=== PATIENT | female | born 1950 | race Caucasian/White ===

== ENCOUNTER 2017-07-30 11:00 | Observation (INO) | payer MEDICARE, MEDICAID ==
[~2017-07-30] VITALS: Ht 157.5 cm; Wt 52.2 kg
[~2017-07-30 11:00] MED LIST: DIAZ-104
[2017-07-30 13:05] VITALS: BP 124/77
== END 2017-07-30 13:18 | disposition home or self-care (01) | DRG 690 ==
LOC: ER 11:00 → OVERFLOW 11:35 → ER 13:18
PROVIDERS: ADMIT Family Medicine; ATTEND Family Medicine
DX: N39.0 Urinary tract infection, site not specified (principal); G35 Multiple sclerosis; T83.021A Displacement of indwelling urethral catheter, initial encounter; Y84.6 Urinary catheterization as the cause of abnormal reaction of the patient, or of later complication, without mention of misadventure at the time of the procedure; Y92.89 Other specified places as the place of occurrence of the external cause; Z74.01 Bed confinement status; Z99.3 Dependence on wheelchair
CPT/HCPCS: 99285; G0378

== ENCOUNTER 2018-01-07 06:18 | Inpatient (IN) | payer MEDICARE, MEDICAID ==
[~2018-01-07] VITALS: Ht 165.1 cm; Wt 62.1 kg
[2018-01-07] MEDS ORDERED: ONDANSETRON HCL 4 MG/2 ML VIAL IV ONE (06:30)
[2018-01-07] MEDS ORDERED: MORPHINE SULFATE 4 MG/ML SYR/VIAL IV ONE (06:30)
[2018-01-07] MEDS ORDERED: SODIUM CHLORIDE 0.9% 1,000 ML IV ONE (07:35)
[2018-01-07] MEDS ORDERED: LEVOFLOXACIN 500MG 100 ML IV ONE (07:45)
[2018-01-07 08:33] LABS: Basophils # (auto) 0.1 uL; Basophils % (auto) 1.3 % (0.0-2.0); Eosinophils # (auto) 0.1 uL; Eosinophils % (auto) 0.6 % (0.0-7.0); Hematocrit 39.8 % (36.0-46.0); Hemoglobin 13.3 g/dL (12.2-16.2); Lymphocytes # (auto) 2.3 uL; Lymphocytes % (auto) 21.4 % (10.0-50.0); Mean Corpuscular Hgb Conc. 33.4 g/dL (32.0-36.0); Monocytes # (auto) 0.9 uL; Monocytes % (auto) 8.1 % (0.0-12.0); Neutrophils # (auto) 7.5 uL; Neutrophils % (auto) 68.6 % (37.0-80.0); Nucleated Red Blood Cells % 0.1 %; Platelet Count (auto) 414 10^3/uL (140-450); Red Blood Cells 4.15 10^6/uL (4.0-5.20); White Blood Cell 10.9 10^3/uL (4.4-10.8)
[2018-01-07 08:50] LABS: Urine Bacteria NONE SEEN /hpf (None Seen); Urine Blood 1+ /uL (Negative); Urine Mucus FEW (None Seen); Urine Specific Gravity 1.016 (1.001-1.035); Urine WBC 1297 /hpf (0 - 5); Urine WBC Clumps PRESENT /hpf (None Seen)
[2018-01-07] MEDS ORDERED: SODIUM CHLORIDE 0.9% 1,000 ML IV SCH (08:53)
[2018-01-07 08:55] LABS: INR 0.99 (0.9-1.15); Prothrombin Time 10.8 sec (9.37-12.3)
[2018-01-07 08:57] LABS: Albumin 2.9 g/dL (3.4-5.0); BUN/Creatinine Ratio 8.9; Bilirubin, Total 0.3 mg/dL (0.2-1.0); Calcium 8.5 mg/dL (8.5-10.1); Potassium 3.6 mmol/L (3.5-5.1); Total Protein 8.2 g/dL (6.4-8.2)
[2018-01-07] MEDS ORDERED: PROMETHAZINE HCL 25 MG/ML 1ML IV PRN (09:00)
[2018-01-07] MEDS ORDERED: ACETAMINOPHEN 500 MG TAB PO PRN (09:00)
[2018-01-07] MEDS ORDERED: FAMOTIDINE (10MG/ML) 2ML VL IV SCH (09:00)
[2018-01-07] MEDS ORDERED: NITROGLYCERIN 0.4 MG SL TAB SL PRN (09:00)
[2018-01-07] MEDS ORDERED: LORazepam 0.5 MG TAB PO PRN (09:00)
[2018-01-07] MEDS ORDERED: MORPHINE SULFATE 4 MG/ML SYR/VIAL IV PRN (09:00)
[2018-01-07] MEDS: ENOXAPARIN SOD 30 MG/0.3 ML SYRINGE SC SCH (09:52)
[2018-01-07] MEDS: FAMOTIDINE (10MG/ML) 2ML VL IV SCH (09:52)
[2018-01-07] MEDS: cefTRIAXone 1GM/10ml IVPUSH 10 ML IV SCH (09:52)
[2018-01-07] MEDS ORDERED: HYDR-4683 PO (11:22)
[2018-01-07 11:24] VITALS: BP 111/67
[2018-01-07 12:00] VITALS: BP 111/67
[2018-01-07] MEDS: DIAZEPAM 5 MG TAB PO SCH ×2 (14:21→22:03)
[2018-01-07] MEDS: HYDROcodone-ACET 5/325MG TAB PO PRN ×2 (14:22→22:03)
[2018-01-07] MEDS: SODIUM CHLORIDE 0.9% 1,000 ML IV SCH (14:23)
[2018-01-07 15:00] VITALS: BP 109/57
[2018-01-07 20:00] VITALS: BP 101/61
[2018-01-07 22:00] VITALS: BP 101/61
[2018-01-08] MEDS: SODIUM CHLORIDE 0.9% 1,000 ML IV SCH ×3 (00:30→22:02)
[2018-01-08 05:52] VITALS: BP 105/66
[2018-01-08] MEDS: HYDROcodone-ACET 5/325MG TAB PO PRN ×2 (06:37→14:33)
[2018-01-08] MEDS: DIAZEPAM 5 MG TAB PO SCH ×3 (06:37→22:03)
[2018-01-08 07:51] LABS: Albumin 1.3 g/dL (3.4-5.0); BUN/Creatinine Ratio 12.5; Potassium 3.3 mmol/L (3.5-5.1)
[2018-01-08 07:52] VITALS: BP 113/58
[2018-01-08 07:58] LABS: Bilirubin, Total 0.2 mg/dL (0.2-1.0)
[2018-01-08 08:08] LABS: Calcium 5.8 mg/dL (8.5-10.1)
[2018-01-08 08:43] LABS: Basophils # (auto) 0.1 uL; Basophils % (auto) 0.8 % (0.0-2.0); Eosinophils # (auto) 0.1 uL; Eosinophils % (auto) 1.4 % (0.0-7.0); Hematocrit 35.9 % (36.0-46.0); Hemoglobin 11.8 g/dL (12.2-16.2); Lymphocytes # (auto) 2.3 uL; Lymphocytes % (auto) 28.8 % (10.0-50.0); Mean Corpuscular Hgb Conc. 32.7 g/dL (32.0-36.0); Mean Corpuscular Volume 97.8 fL (80.0-100.0); Monocytes # (auto) 0.6 uL; Monocytes % (auto) 7.6 % (0.0-12.0); Neutrophils # (auto) 4.8 uL; Neutrophils % (auto) 61.4 % (37.0-80.0); Platelet Count (auto) 320 10^3/uL (140-450); Red Blood Cells 3.67 10^6/uL (4.0-5.20); Red Cell Distribution Width 15.1 % (11.8-14.3); White Blood Cell 7.9 10^3/uL (4.4-10.8)
[2018-01-08] MEDS: cefTRIAXone 1GM/10ml IVPUSH 10 ML IV SCH (09:54)
[2018-01-08] MEDS: FAMOTIDINE (10MG/ML) 2ML VL IV SCH (10:04)
[2018-01-08] MEDS: ENOXAPARIN SOD 30 MG/0.3 ML SYRINGE SC SCH (10:04)
[2018-01-08 11:23] VITALS: BP 105/74
[2018-01-08] MEDS ORDERED: POTASSIUM CHL 10% (20 MEQ/15ML) 15ml ORAL SOLN PO ONE (15:30)
[2018-01-08] MEDS ORDERED: CALCIUM GLUC 4.65meq/50ml D5AE 50 ML IV ONE (15:30)
[2018-01-08 17:10] VITALS: BP 133/65
[2018-01-08] MEDS: ASCORBIC ACID 500 MG TAB PO SCH (17:58)
[2018-01-08] MEDS: MULTIPLE VITAMINS W/ MINERALS TAB PO SCH (18:00)
[2018-01-08 20:00] VITALS: BP 103/53
[2018-01-08 22:00] VITALS: BP 103/53
[2018-01-08] MEDS: PRO-STAT 64 30ML PO SCH (22:03)
[2018-01-09 05:32] VITALS: BP 109/54
[2018-01-09] MEDS: DIAZEPAM 5 MG TAB PO SCH ×3 (05:44→21:44)
[2018-01-09] MEDS: SODIUM CHLORIDE 0.9% 1,000 ML IV SCH ×2 (05:45→16:04)
[2018-01-09] MEDS: HYDROcodone-ACET 5/325MG TAB PO PRN ×2 (06:01→13:52)
[2018-01-09 09:00] VITALS: BP 128/65
[2018-01-09] MEDS: FAMOTIDINE (10MG/ML) 2ML VL IV SCH (09:58)
[2018-01-09] MEDS: MULTIPLE VITAMINS W/ MINERALS TAB PO SCH (09:58)
[2018-01-09] MEDS: ENOXAPARIN SOD 30 MG/0.3 ML SYRINGE SC SCH (09:58)
[2018-01-09] MEDS: ASCORBIC ACID 500 MG TAB PO SCH (09:58)
[2018-01-09] MEDS: PRO-STAT 64 30ML PO SCH ×2 (09:59→21:44)
[2018-01-09] MEDS: cefTRIAXone 1GM/10ml IVPUSH 10 ML IV SCH (09:59)
[2018-01-09 11:54] LABS: Albumin 2.1 g/dL (3.4-5.0); BUN/Creatinine Ratio 9.7; Bilirubin, Total 0.1 mg/dL (0.2-1.0); Calcium 7.7 mg/dL (8.5-10.1)
[2018-01-09 13:00] VITALS: BP 122/85
[2018-01-09 16:00] VITALS: BP 111/53
[2018-01-09] MEDS: TEMAZEPAM 15 MG CAP PO PRN (21:43)
[2018-01-09 22:00] VITALS: BP 113/69
[2018-01-10 05:00] VITALS: BP 108/61
[2018-01-10] MEDS: DIAZEPAM 5 MG TAB PO SCH ×3 (06:20→21:37)
[2018-01-10] MEDS: SODIUM CHLORIDE 0.9% 1,000 ML IV SCH ×2 (06:21→12:00)
[2018-01-10 08:24] VITALS: BP 106/66
[2018-01-10] MEDS: cefTRIAXone 1GM/10ml IVPUSH 10 ML IV SCH (11:27)
[2018-01-10] MEDS: ENOXAPARIN SOD 30 MG/0.3 ML SYRINGE SC SCH (11:27)
[2018-01-10] MEDS: ASCORBIC ACID 500 MG TAB PO SCH (11:28)
[2018-01-10] MEDS: MULTIPLE VITAMINS W/ MINERALS TAB PO SCH (11:28)
[2018-01-10] MEDS: FAMOTIDINE (10MG/ML) 2ML VL IV SCH (11:28)
[2018-01-10] MEDS: PRO-STAT 64 30ML PO SCH ×2 (11:29→21:38)
[2018-01-10 13:30] VITALS: BP 110/76
[2018-01-10 17:31] VITALS: BP 110/60
[2018-01-10 22:00] VITALS: BP 134/73
[2018-01-11] MEDS: SODIUM CHLORIDE 0.9% 1,000 ML IV SCH ×3 (02:41→18:00)
[2018-01-11 05:00] VITALS: BP 111/62
[2018-01-11] MEDS: DIAZEPAM 5 MG TAB PO SCH ×3 (06:46→22:37)
[2018-01-11 09:00] VITALS: BP 124/62
[2018-01-11] MEDS ORDERED: FUROSEMIDE 40 MG/4 ML VIAL ONE (09:14)
[2018-01-11] MEDS: MORPHINE SULFATE 4 MG/ML SYR/VIAL IV PRN ×3 (10:22→21:13)
[2018-01-11] MEDS: FAMOTIDINE (10MG/ML) 2ML VL IV SCH (10:24)
[2018-01-11] MEDS: cefTRIAXone 1GM/10ml IVPUSH 10 ML IV SCH (10:24)
[2018-01-11] MEDS: MULTIPLE VITAMINS W/ MINERALS TAB PO SCH (10:26)
[2018-01-11] MEDS: ASCORBIC ACID 500 MG TAB PO SCH (10:26)
[2018-01-11] MEDS: PRO-STAT 64 30ML PO SCH ×2 (10:27→22:00)
[2018-01-11] MEDS: ENOXAPARIN SOD 30 MG/0.3 ML SYRINGE SC SCH (10:27)
[2018-01-11 12:49] LABS: Basophils # (auto) 0.1 uL; Basophils % (auto) 0.9 % (0.0-2.0); Eosinophils # (auto) 0.1 uL; Hematocrit 34.6 % (36.0-46.0); Hemoglobin 11.5 g/dL (12.2-16.2); Lymphocytes # (auto) 1.6 uL; Lymphocytes % (auto) 25.7 % (10.0-50.0); Mean Corpuscular Hemoglobin 31.8 pg (28.0-32.0); Mean Corpuscular Hgb Conc. 33.1 g/dL (32.0-36.0); Monocytes # (auto) 0.5 uL; Monocytes % (auto) 7.8 % (0.0-12.0); Neutrophils % (auto) 63.6 % (37.0-80.0); Nucleated Red Blood Cells % 0.3 %; Platelet Count (auto) 330 10^3/uL (140-450); Red Blood Cells 3.61 10^6/uL (4.0-5.20); Red Cell Distribution Width 14.4 % (11.8-14.3); White Blood Cell 6.2 10^3/uL (4.4-10.8)
[2018-01-11 13:00] VITALS: BP 141/74
[2018-01-11 13:19] LABS: BUN/Creatinine Ratio 13.5; Calcium 8.1 mg/dL (8.5-10.1)
[2018-01-11 13:25] LABS: Potassium 4.3 mmol/L (3.5-5.1)
[2018-01-11 16:37] VITALS: BP 121/70
[2018-01-11 22:00] VITALS: BP 114/70
[2018-01-12 05:00] VITALS: BP 100/61
[2018-01-12] MEDS: DIAZEPAM 5 MG TAB PO SCH ×3 (06:10→22:00)
[2018-01-12] MEDS: SODIUM CHLORIDE 0.9% 1,000 ML IV SCH ×2 (08:39→15:00)
[2018-01-12] MEDS: cefTRIAXone 1GM/10ml IVPUSH 10 ML IV SCH (08:39)
[2018-01-12] MEDS: FAMOTIDINE (10MG/ML) 2ML VL IV SCH (09:27)
[2018-01-12] MEDS: PRO-STAT 64 30ML PO SCH ×2 (09:28→22:00)
[2018-01-12] MEDS: MULTIPLE VITAMINS W/ MINERALS TAB PO SCH (09:28)
[2018-01-12] MEDS: ASCORBIC ACID 500 MG TAB PO SCH (09:28)
[2018-01-12] MEDS: MORPHINE SULFATE 4 MG/ML SYR/VIAL IV PRN (09:29)
[2018-01-12] MEDS: ENOXAPARIN SOD 30 MG/0.3 ML SYRINGE SC SCH (09:29)
[2018-01-12 11:51] VITALS: BP 92/54
[2018-01-12] MEDS: HYDROcodone-ACET 5/325MG TAB PO PRN (16:24)
[2018-01-12 17:04] VITALS: BP 123/66
[2018-01-12 22:08] VITALS: BP 94/51
[2018-01-13] MEDS: HYDROcodone-ACET 5/325MG TAB PO PRN ×4 (03:01→22:55)
[2018-01-13 05:13] VITALS: BP 108/58
[2018-01-13] MEDS: DIAZEPAM 5 MG TAB PO SCH ×3 (06:25→21:31)
[2018-01-13 08:39] VITALS: BP 111/70
[2018-01-13] MEDS: FAMOTIDINE (10MG/ML) 2ML VL IV SCH (09:43)
[2018-01-13] MEDS: cefTRIAXone 1GM/10ml IVPUSH 10 ML IV SCH (09:43)
[2018-01-13] MEDS: ASCORBIC ACID 500 MG TAB PO SCH (09:43)
[2018-01-13] MEDS: ENOXAPARIN SOD 30 MG/0.3 ML SYRINGE SC SCH (09:43)
[2018-01-13] MEDS: MULTIPLE VITAMINS W/ MINERALS TAB PO SCH (09:43)
[2018-01-13] MEDS: SODIUM CHLORIDE 0.9% 1,000 ML IV SCH ×3 (09:51→20:00)
[2018-01-13] MEDS: PRO-STAT 64 30ML PO SCH ×2 (09:51→21:31)
[2018-01-13 12:00] VITALS: BP 130/77
[2018-01-13 15:00] VITALS: BP 131/82
[2018-01-13] MEDS: TEMAZEPAM 15 MG CAP PO PRN (22:50)
[2018-01-14 05:00] VITALS: BP 95/53
[2018-01-14] MEDS: SODIUM CHLORIDE 0.9% 1,000 ML IV SCH ×2 (06:00→16:24)
[2018-01-14] MEDS: DIAZEPAM 5 MG TAB PO SCH ×2 (06:40→14:02)
[2018-01-14 07:26] VITALS: BP 105/57
[2018-01-14] MEDS: MULTIPLE VITAMINS W/ MINERALS TAB PO SCH (09:33)
[2018-01-14] MEDS: PRO-STAT 64 30ML PO SCH (09:34)
[2018-01-14] MEDS: HYDROcodone-ACET 5/325MG TAB PO PRN ×2 (09:34→15:41)
[2018-01-14] MEDS: ENOXAPARIN SOD 30 MG/0.3 ML SYRINGE SC SCH (09:34)
[2018-01-14] MEDS: ASCORBIC ACID 500 MG TAB PO SCH (09:34)
[2018-01-14 10:16] LABS: Basophils # (auto) 0.1 uL; Basophils % (auto) 1.1 % (0.0-2.0); Eosinophils # (auto) 0.1 uL; Eosinophils % (auto) 2.2 % (0.0-7.0); Hemoglobin 11.1 g/dL (12.2-16.2); Lymphocytes # (auto) 1.9 uL; Lymphocytes % (auto) 34.5 % (10.0-50.0); Mean Corpuscular Hemoglobin 32.1 pg (28.0-32.0); Mean Corpuscular Hgb Conc. 33.6 g/dL (32.0-36.0); Mean Corpuscular Volume 95.6 fL (80.0-100.0); Monocytes # (auto) 0.4 uL; Monocytes % (auto) 7.5 % (0.0-12.0); Neutrophils % (auto) 54.7 % (37.0-80.0); Nucleated Red Blood Cells % 0.2 %; Platelet Count (auto) 350 10^3/uL (140-450); Red Blood Cells 3.45 10^6/uL (4.0-5.20); Red Cell Distribution Width 14.4 % (11.8-14.3); White Blood Cell 5.5 10^3/uL (4.4-10.8)
[2018-01-14 10:23] LABS: BUN/Creatinine Ratio 12.2; Calcium 8.6 mg/dL (8.5-10.1); Potassium 4.8 mmol/L (3.5-5.1)
[2018-01-14] MEDS: cefTRIAXone 1GM/10ml IVPUSH 10 ML IV SCH (10:31)
[2018-01-14] MEDS: FAMOTIDINE (10MG/ML) 2ML VL IV SCH (10:31)
[2018-01-14 13:36] VITALS: BP 122/65
== END 2018-01-14 18:45 | DRG 384 ==
LOC: EDBD 06:18 → ER 06:18 → TELE 06:19 → TELE-WESTW 10:33
PROVIDERS: ADMIT Internal Medicine; ATTEND Family Medicine
DX: S20.229A Contusion of unspecified back wall of thorax, initial encounter (principal); N17.1 Acute kidney failure with acute cortical necrosis; L89.211 Pressure ulcer of right hip, stage 1; L89.154 Pressure ulcer of sacral region, stage 4; E44.0 Moderate protein-calorie malnutrition; G82.20 Paraplegia, unspecified; N13.6 Pyonephrosis; G35 Multiple sclerosis; M48.02 Spinal stenosis, cervical region; E83.51 Hypocalcemia; L89.612 Pressure ulcer of right heel, stage 2; E86.0 Dehydration; B96.20 Unspecified Escherichia coli [E. coli] as the cause of diseases classified elsewhere; B96.1 Klebsiella pneumoniae [K. pneumoniae] as the cause of diseases classified elsewhere; W05.0XXA Fall from non-moving wheelchair, initial encounter; N39.0 Urinary tract infection, site not specified; E87.6 Hypokalemia; G89.29 Other chronic pain; Z99.3 Dependence on wheelchair; Z88.1 Allergy status to other antibiotic agents; Z88.2 Allergy status to sulfonamides; Z68.22 Body mass index [BMI] 22.0-22.9, adult; Z98.51 Tubal ligation status; Z87.891 Personal history of nicotine dependence; Z79.899 Other long term (current) drug therapy; Y93.89 Activity, other specified; Y92.89 Other specified places as the place of occurrence of the external cause; Y99.8 Other external cause status
CPT/HCPCS: 36415; 51702; 70450; 72125; 72131; 74176; 76775; 78707; 80048; 80053; 81001; 83605; 85025; 85610; 87040; 87086; 87088; 87186; 94761; 96365; 96375; J0610; J1956; J2405; J3490